=== PATIENT | male | born 1975 | race Caucasian/White ===

== ENCOUNTER 2019-09-21 20:53 | Emergency (ER) | payer BC ==
[~2019-09-21] VITALS: Ht 182.9 cm; Wt 83.9 kg
[2019-09-21 21:00] VITALS: Ht 182.9 cm; Wt 83.9 kg
[2019-09-21 22:37] LABS: PLATELET COUNT 178 x10^3mcL (130-400); RED CELL DISTRIBUTION WIDTH 14.3 % (11.5-14.5)
[2019-09-21 22:45] LABS: BASOPHIL % 0 % (0-2)
[2019-09-21 22:51] LABS: ALBUMIN 4.2 g/dL (3.4-5.0); ALKALINE PHOSPHATASE 81 U/L (46-116); ALT/SGPT 27 U/L (16-63); AST/SGOT 10 U/L (15-37); BILIRUBIN TOTAL 0.73 mg/dL (0.20-1.00); CALCIUM 8.9 mg/dL (8.5-10.1); CHLORIDE SERUM 103 mmol/L (98-107); CREATININE SERUM 1.6 mg/dL (0.7-1.3); GFR1 50 mL/min; GLUCOSE SERUM 129 mg/dL (74-106); SODIUM SERUM 136 mmol/L (136-145)
[2019-09-21 23:09] LABS: POTASSIUM SERUM 6.8 mmol/L (3.5-5.1)
[2019-09-22 00:37] VITALS: BP 109/71
== END 2019-09-22 00:37 | disposition home or self-care (01) ==
LOC: ED 20:53
PROVIDERS: Emergency Medicine
DX: K52.9 Noninfective gastroenteritis and colitis, unspecified (principal); F41.9 Anxiety disorder, unspecified; K21.9 Gastro-esophageal reflux disease without esophagitis
CPT/HCPCS: J0780; J7030; Q0092